=== PATIENT | male | born 1945 | race Caucasian/White ===

== ENCOUNTER → 2020-01-21 | Emergency (ER) | payer MEDICARE ==
[~2020-01-21] VITALS: Ht 167.6 cm; Wt 72.6 kg
[~2020-01-21] MED LIST: B-121000 MC2 PO; CYMBALTA30 MG PO; DIAZEPAM5 MG PO; FERROUS GLUCON324 M2 PO; KEFLEX500 MG PO; MS CONTIN15 MG PO; PERCOCET 5-3251 EACH PO; POLYOX WSR-3011 GM MISC; TERAZOSIN HCL5 MG PO; VITAMIN C500 MG PO
== END ==
LOC: ED 17:55
DX: L03.115 Cellulitis of right lower limb (principal); F41.9 Anxiety disorder, unspecified; E11.22 Type 2 diabetes mellitus with diabetic chronic kidney disease; N18.4 Chronic kidney disease, stage 4 (severe); F32.9 Major depressive disorder, single episode, unspecified; I25.2 Old myocardial infarction; Z79.899 Other long term (current) drug therapy; Z79.891 Long term (current) use of opiate analgesic
CPT/HCPCS: 99283